=== PATIENT | male | born 1955 | race Caucasian/White ===

== ENCOUNTER 2018-08-31 21:56 | Inpatient (IN) | payer OTHER, SELFPAY ==
[2018-08-31] MEDS ORDERED: ASPIRIN PO ONE (22:06)
[2018-08-31] MEDS ORDERED: ZOFRAN ODT PO ONE (22:47)
[2018-08-31] MEDS ORDERED: ZOFRAN ODT ONE (22:48)
[2018-08-31 23:00] LABS: Basophils # (Auto) 0.1 K/mm3 (0.0-0.1); Eosinophils # (Auto) 0.1 K/mm3 (0.0-0.4); Eosinophils % (Auto) 0.8 % (0.0-4.3); Lymphocytes # (Auto) 2.4 K/mm3 (1.2-5.4); Lymphocytes % (Auto) 25.3 % (13.4-35.0); Mean Corpuscular HGB Conc 36 % (32-34); Mean Corpuscular Volume 80 fl (84-94); Monocytes # (Auto) 0.6 K/mm3 (0.0-0.8); Monocytes % (Auto) 6.1 % (0.0-7.3); Platelet Count 211 K/mm3 (140-440); Red Blood Count 5.54 M/mm3 (3.65-5.03); Red Cell Distribution Width 14.2 % (13.2-15.2)
[2018-08-31 23:02] LABS: Hematocrit 44.3 % (35.5-45.6); Hemoglobin 15.8 gm/dl (11.8-15.2)
[2018-08-31 23:19] LABS: BUN/Creatinine Ratio 12; Blood Urea Nitrogen 13 mg/dL (9-20); Calcium 9.2 mg/dL (8.4-10.2); Hemolysis Index 9
[2018-09-01] MEDS ORDERED: NITROSTAT SL PRN (00:29)
[2018-09-01] MEDS ORDERED: ASPIRIN ONE ×2 (00:35→10:29)
--- NOTE | 2018-09-01 01:02 | XRay Report ---
FINAL REPORT PROCEDURE: XR CHEST ROUTINE 2V TECHNIQUE: PA and lateral chest radiographs were obtained. CPT 02731 HISTORY: chest pain COMPARISON: No prior studies are available for comparison. FINDINGS: Heart: Normal. Mediastinum/Vessels: Normal. Lungs/Pleural space: Normal. Bony thorax: No acute osseous abnormality. Other: IMPRESSION: Normal examination.
[2018-09-01 01:18] LABS: Chol/HDL Ratio 5.78 %; HDL Cholesterol 41 mg/dL (40-59); LDL Cholesterol,Direct 178 mg/dL (50-130)
[2018-09-01] MEDS ORDERED: HEPARIN 10,000 UNITS/10 ML IV ONE (01:19)
--- NOTE | 2018-09-01 01:24 | Emergency Department Report ---
ED Chest Pain HPI - General Chief Complaint: Chest Pain Stated Complaint: CHEST PAIN Time Seen by Provider: 09/01/18 00:28 Source: patient, family Mode of arrival: Ambulatory Limitations: Language Barrier - History of Present Illness Initial Comments: Patient is a 63-year-old male with no known past medical history that he is aware of who is presenting with chest pressure. 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 Patient started having some substernal and left-sided chest pressure earlier today. There was some associated shortness of breath mild headache. Patient's states there is no diaphoresis or nausea or vomiting present. Patient has not had a cough cold or congestion. Severity scale (0 -10): 8 - Related Data Allergies Allergy/AdvReac Type Severity Reaction Status Date / Time No Known Allergies Allergy Verified 08/31/18 22:06 Heart Score - HEART Score History: Moderately suspicious EKG: Non-specific Age: 45-65 Risk factors: 1-2 risk factors Troponin: 1-3x normal limit HEART Score: 5 ED Review of Systems ROS: Stated complaint: CHEST PAIN Other details as noted in HPI Comment: All other systems reviewed and negative ED Past Medical Hx - Past Medical History Previous Medical History?: No - Surgical History Past Surgical History?: No - Social History Smoking Status: Never Smoker ED Physical Exam - General Limitations: Language Barrier General appearance: alert, in no apparent distress - Head Head exam: Present: atraumatic, normocephalic - Eye Eye exam: Present: normal appearance - ENT ENT exam: Present: mucous membranes moist - Neck Neck exam: Present: normal inspection - Respiratory Respiratory exam: Present: normal lung sounds bilaterally. Absent: respiratory distress, wheezes, rales, rhonchi - Cardiovascular Cardiovascular Exam: Present: regular rate, normal rhythm. Absent: systolic murmur, diastolic murmur, rubs, gallop - GI/Abdominal GI/Abdominal exam: Present: soft, normal bowel sounds. Absent: distended, tenderness, guarding, rebound - Rectal Rectal exam: Present: deferred - Extremities Exam Extremities exam: Present: normal inspection - Back Exam Back exam: Present: normal inspection - Neurological Exam Neurological exam: Present: alert, oriented X3 - Psychiatric Psychiatric exam: Present: normal affect, normal mood - Skin Skin exam: Present: warm, dry, intact, normal color. Absent: rash ED Course Vital Signs 08/31/18 22:34 Temperature 97.1 F L Pulse Rate 70 Respiratory 20 Rate Blood Pressure 198/107 O2 Sat by Pulse 96 Oximetry BETI score - Beti Score Age > 65: (0) No Aspirin use within the Past 7 Days: (0) No 3 or more CAD Risk Factors: (1) Yes 2 or more Angina events in past 24 hrs: (1) Yes Known CAD with more than 50% Stenosis: (0) No Elevated Cardiac Markers: (1) Yes ST Deviation Greater than 0.5mm: (0) No BETI Score: 3 ED Medical Decision Making - Lab Data Result diagrams: 08/31/18 22:30 08/31/18 22:30 Lab Results 08/31/18 08/31/18 Range/Units 22:30 22:30 WBC 9.4 (4.5-11.0) K/mm3 RBC 5.54 H (3.65-5.03) M/mm3 Hgb 15.8 H (11.8-15.2) gm/dl Hct 44.3 (35.5-45.6) % MCV 80 L (84-94) fl MCH 29 (28-32) pg MCHC 36 H (32-34) % RDW 14.2 (13.2-15.2) % Plt Count 211 (140-440) K/mm3 Lymph % (Auto) 25.3 (13.4-35.0) % [place] % (Auto) 6.1 (0.0-7.3) % Eos % (Auto) 0.8 (0.0-4.3) % Baso % (Auto) 1.0 (0.0-1.8) % Lymph # 2.4 (1.2-5.4) K/mm3 [place] # 0.6 (0.0-0.8) K/mm3 Eos # 0.1 (0.0-0.4) K/mm3 Baso # 0.1 (0.0-0.1) K/mm3 Seg Neutrophils % 66.8 (40.0-70.0) % Seg Neutrophils # 6.3 (1.8-7.7) K/mm3 Sodium 137 (137-145) mmol/L Potassium 4.2 (3.6-5.0) mmol/L Chloride 99.0 (98-107) mmol/L Carbon Dioxide 24 (22-30) mmol/L Anion Gap 18 mmol/L BUN 13 (9-20) mg/dL Creatinine 1.1 (0.8-1.5) mg/dL Estimated GFR > 60 ml/min BUN/Creatinine Ratio 12 % Glucose 206 H (75-100) mg/dL Calcium 9.2 (8.4-10.2) mg/dL Troponin T 0.172 H* (0.00-0.029) ng/mL Triglycerides 221 H (2-149) mg/dL Cholesterol 237 H (50-199) mg/dL LDL Cholesterol Direct 178 H (50-130) mg/dL HDL Cholesterol 41 (40-59) mg/dL Cholesterol/HDL Ratio 5.78 % - EKG Data -: EKG Interpreted by Me - EKG Data 09/01/18 01:22 EKG shows a sinus rhythm rate of 74 axis normal intervals are normal. No no ST segment elevations or depressions present. 2207 - Radiology Data Radiology results: report reviewed (CXR WNL) - Medical Decision Making Patient is a 63-year-old male with no known past medical history is however his blood pressure was elevated on arrival as well as his glucose. Patient with substernal tightness. Patient is with elevated troponin. Patient will be admitted to the [facility] [place] time. Patient admitted in stable condition. Critical Care Time: Yes (30) Critical care attestation.: If time is entered above; I have spent that time in minutes in the direct care of this critically ill patient, excluding procedure time. ED Disposition Clinical Impression: NSTEMI (non-ST elevated myocardial infarction), Hyperglycemia, Hypertensive urgency, malignant Disposition: OP ADMIT IP TO THIS HOSP Is pt being admited?: Yes Does the pt Need Aspirin: No Condition: Stable Time of Disposition: 01:24
[2018-09-01 01:47] LABS: Hematocrit 44.4 % (35.5-45.6); Hemoglobin 15.3 gm/dl (11.8-15.2)
[2018-09-01 01:58] LABS: INR 0.89 (0.87-1.13); Partial Thromboplastin Time 27.3 Sec. (24.2-36.6)
[2018-09-01] MEDS ORDERED: SODIUM CHLORIDE FLUSH SYRINGE 10 ML IV PRN (02:24)
[2018-09-01] MEDS ORDERED: ZOFRAN IV PRN (02:24)
[2018-09-01] MEDS ORDERED: TYLENOL PO PRN (02:24)
[2018-09-01] MEDS ORDERED: D50W (25GM) Syringe IV PRN (02:29)
[2018-09-01] MEDS: HEPARIN/ 0.45% NACL-25,000 UNIT/500 ML 25,000 UNIT/500 ML BAG IV SCH (02:49)
[2018-09-01] MEDS ORDERED: NACL 0.9% 1000 ML 1,000 ML IV SCH (03:00)
--- NOTE | 2018-09-01 03:30 | History and Physical Report ---
History of Present Illness Date of examination: 09/01/18 Date of admission: 09/01/18 01:24 Chief complaint: Chest pain History of present illness: Patient is a 53 year old male with no known past medical history who presented to the ED on account of 4 days history of left-sided chest pain. He described it as pressure-like in nature, rated 10 over 10, constant in duration and non-radiating. No known aggravating or relieving factors. He has associated diaphoresis, headaches, nausea with vomiting and lightheadedness. He denies shortness of breath, sore throat, runny nose or congestion, palpitation, cough, fever, chills, leg swelling, orthopnea or PND. No abdominal pain, bleeding from any orifice, constipation, diarrhea, dysuria, frequency, syncope or loss of consciousness. Past History Past Medical History: No medical history Past Surgical History: No surgical history Social history: no significant social history (he denies tobacco, alcohol or illicit drug use) Family history: no significant family history Medications and Allergies Allergies Allergy/AdvReac Type Severity Reaction Status Date / Time No Known Allergies Allergy Verified 08/31/18 22:06 Active Meds: Active Medications Acetaminophen (Tylenol) 650 mg PO Q4H PRN PRN Reason: Pain MILD(1-3)/Fever >100.5/INGRAM Aspirin (Aspirin) 325 mg PO DAILY [facility] Atorvastatin Calcium (Lipitor) 80 mg PO QHS [facility] Carvedilol (Coreg) 3.125 mg PO BID [facility] Dextrose (D50w (25gm) Syringe) 50 ml IV PRN PRN PRN Reason: Hypoglycemia Docusate Sodium (Colace) 100 mg PO BID [facility] Heparin Sodium/Sodium Chloride (Heparin/ 0.45% Nacl-25,000 Unit/500 Ml) 25,000 unit in 500 mls @ 20 mls/hr IV TITRATE [facility]; Protocol Last Admin: 09/01/18 02:49 Dose: 1,000 units/hr, 20 mls/hr Documented by: Sodium Chloride (Nacl 0.9% 1000 Ml) 1,000 mls @ 75 mls/hr IV DIRECT [facility] Insulin Glargine (Lantus) 10 units SUB-Q QHS [facility] Lisinopril (Zestril) 40 mg PO QDAY [facility] Nitroglycerin (Nitrostat) 0.4 mg SL .Q5MIN PRN PRN Reason: Chest Pain Last Admin: 09/01/18 00:53 Dose: 0.4 mg Documented by: Ondansetron HCl (Zofran) 4 mg IV Q8H PRN PRN Reason: Nausea And Vomiting Sodium Chloride (Sodium Chloride Flush Syringe 10 Ml) 10 ml IV BID [facility] Sodium Chloride (Sodium Chloride Flush Syringe 10 Ml) 10 ml IV PRN PRN PRN Reason: LINE FLUSH Review of Systems All systems: negative (except as documented in the HPI, all other systems were reviewed and negative) Exam - Constitutional Vitals: Temp Pulse Resp BP Pulse Ox 97.1 F L 52 L 16 148/85 97 08/31/18 22:34 09/01/18 03:15 09/01/18 03:15 09/01/18 03:15 09/01/18 03:15 General appearance: Present: no acute distress, well-nourished - EENT Eyes: Present: PERRL, EOM intact ENT: hearing intact, clear oral mucosa - Neck Neck: Present: supple, normal ROM - Respiratory Respiratory effort: normal Respiratory: bilateral: CTA - Cardiovascular Rhythm: other (pain is reproducible) Heart Sounds: Present: S1 & S2. Absent: rub, click - Extremities Extremities: No edema Peripheral Pulses: within normal limits - Abdominal General gastrointestinal: Present: soft, non-tender, non-distended, normal bowel sounds Male genitourinary: Present: deferred - Integumentary Integumentary: Present: clear, warm, dry - Musculoskeletal Musculoskeletal: gait normal, strength equal bilaterally - Psychiatric Psychiatric: appropriate mood/affect, intact judgment & insight - Neurologic Neurologic: CNII-XII intact, moves all extremities Results - Labs CBC & Chem 7: 09/01/18 01:26 08/31/18 22:30 Labs: Laboratory Last Values WBC 9.4 K/mm3 (4.5-11.0) 08/31/18 22:30 RBC 5.54 M/mm3 (3.65-5.03) H 08/31/18 22:30 Hgb 15.3 gm/dl (11.8-15.2) H 09/01/18 01:26 Hct 44.4 % (35.5-45.6) 09/01/18 01:26 MCV 80 fl (84-94) L 08/31/18 22:30 MCH 29 pg (28-32) 08/31/18 22:30 MCHC 36 % (32-34) H 08/31/18 22:30 RDW 14.2 % (13.2-15.2) 08/31/18 22:30 Plt Count 187 K/mm3 (140-440) 09/01/18 01:26 Lymph % (Auto) 25.3 % (13.4-35.0) 08/31/18 22:30 [place] % (Auto) 6.1 % (0.0-7.3) 08/31/18 22:30 Eos % (Auto) 0.8 % (0.0-4.3) 08/31/18: Baso % (Auto) 1.0 % (0.0-1.8) 08/31/18 22:30 Lymph # 2.4 K/mm3 (1.2-5.4) 08/31/18 22: [place] # 0.6 K/mm3 (0.0-0.8) 08/31/18 22: Eos # 0.1 K/mm3 (0.0-0.4) 08/31/18 22: Baso # 0.1 K/mm3 (0.0-0.1) 08/31/18 22:30 Seg Neutrophils % 66.8 % (40.0-70.0) 08/31/18 22:30 Seg Neutrophils # 6.3 K/mm3 (1.8-7.7) 08/31/18 22: PT 12.6 Sec. (12.2-14.9) 09/01/18 01: INR 0.89 (0.87-1.13) 09/01/18 01: APTT 27.3 Sec. (24.2-36.6) 09/01/18 01: Sodium 137 mmol/L (137-145) 08/31/18 22: Potassium 4.2 mmol/L (3.6-5.0) 08/31/18 22: Chloride 99.0 mmol/L (98-107) 08/31/18 22:30 Carbon Dioxide 24 mmol/L (22-30) 08/31/18 22:30 Anion Gap 18 mmol/L 08/31/18 22:30 BUN 13 mg/dL (9-20) 08/31/18 22:30 Creatinine 1.1 mg/dL (0.8-1.5) 08/31/18 22:30 Estimated GFR > 60 ml/min 08/31/18 22:30 BUN/Creatinine Ratio 12 % 08/31/18 22:30 Glucose 206 mg/dL (75-100) H 08/31/18 22:30 Calcium 9.2 mg/dL (8.4-10.2) 08/31/18 22:30 Troponin T 0.255 ng/mL (0.00-0.029) H* D 09/01/18 01:26 Triglycerides 221 mg/dL (2-149) H 08/31/18 22:30 Cholesterol 237 mg/dL (50-199) H 08/31/18 22:30 LDL Cholesterol Direct 178 mg/dL (50-130) H 08/31/18 22:30 HDL Cholesterol 41 mg/dL (40-59) 08/31/18 22:30 Cholesterol/HDL Ratio 5.78 % 08/31/18 22:30 Assessment and Plan Assessment and plan: NSTEMI -ACS protocol with heparin drip -Cardiology consulted Hypertensive crisis with BP of 198/107 on presentation -On antihypertensive, will monitor Hyperglycemia -We'll check hemoglobin A1c level Dyslipidemia -On statin GI prophylaxis with Protonix Disposition: Patient will be admitted to the IMCU Time spent: 40 minutes
[2018-09-01] MEDS ORDERED: COREG PO SCH (10:00)
[2018-09-01] MEDS ORDERED: ZESTRIL PO SCH (10:00)
--- NOTE | 2018-09-01 10:01 | Consultation ---
Addendum entered and electronically signed by ELIJAH SHARP MD 09/01/18 17:28: Patient's heart rate has persistently remained 55-60, we will hold beta anna therapy until bradycardia resolves. Addendum entered and electronically signed by ELIJAH SHARP MD 09/01/18 17:23: 63-year-old man who presents to the hospital with several days of intermittent chest pain and fatigue. EKG in the emergency room was rhythm with nonspecific ST changes. Laboratory exam showed serial elevation of the troponin levels, suggestive of non-ST elevation myocardial infarction. Recommendations: The patient will be treated with intravenous heparin, topical nitrates, aspirin, beta blockers and statin. We'll proceed with early invasive management, cardiac catheterization is scheduled for tomorrow morning. Original Note: History of Present Illness Consult date: 09/01/18 Consult reason: chest pain, elevated troponin History of present illness: Patient is a 63 year old male who presents to the emergency room with 4 days of chest pain. Patient denies a prior medical history and does not smoke cigarettes. Chest x-ray is negative. ECG shows sinus rhythm with no acute ischemic changes but troponin levels are elevated with a trend upwards. Labs also notable for a glucose of 206. Systolic blood pressure greater than 190 on presentation. A cardiac consultation was requested for further recommendations. Past History Past Medical History: No medical history Past Surgical History: No surgical history Social history: no significant social history (he denies tobacco, alcohol or illicit drug use) Family history: no significant family history Medications and Allergies Allergies Allergy/AdvReac Type Severity Reaction Status Date / Time No Known Allergies Allergy Verified 08/31/18 22:06 Active Meds: Active Medications Acetaminophen (Tylenol) 650 mg PO Q4H PRN PRN Reason: Pain MILD(1-3)/Fever >100.5/INGRAM Aspirin (Aspirin) 325 mg PO DAILY [facility] Atorvastatin Calcium (Lipitor) 80 mg PO QHS [facility] Dextrose (D50w (25gm) Syringe) 50 ml IV PRN PRN PRN Reason: Hypoglycemia Docusate Sodium (Colace) 100 mg PO BID [facility] Heparin Sodium/Sodium Chloride (Heparin/ 0.45% Nacl-25,000 Unit/500 Ml) 25,000 unit in 500 mls @ 20 mls/hr IV TITRATE [facility]; Protocol Last Admin: 09/01/18 02:49 Dose: 1,000 units/hr, 20 mls/hr Documented by: Sodium Chloride (Nacl 0.9% 1000 Ml) 1,000 mls @ 75 mls/hr IV DIRECT [facility] Insulin Glargine (Lantus) 10 units SUB-Q QHS [facility] Lisinopril (Zestril) 40 mg PO QDAY [facility] Nitroglycerin (Nitrostat) 0.4 mg SL .Q5MIN PRN PRN Reason: Chest Pain Last Admin: 09/01/18 00:53 Dose: 0.4 mg Documented by: Ondansetron HCl (Zofran) 4 mg IV Q8H PRN PRN Reason: Nausea And Vomiting Pantoprazole Sodium (Protonix) 40 mg PO QDAY [facility] Sodium Chloride (Sodium Chloride Flush Syringe 10 Ml) 10 ml IV BID [facility] Sodium Chloride (Sodium Chloride Flush Syringe 10 Ml) 10 ml IV PRN PRN PRN Reason: LINE FLUSH Physical Examination Vital Signs Temp Pulse Resp BP Pulse Ox 97.1 F L 70 20 198/107 96 08/31/18 22:34 08/31/18 22:34 08/31/18 22:34 08/31/18 22:34 08/31/18 22:34 General appearance: no acute distress HEENT: Positive: PERRL Neck: Positive: trachea midline Cardiac: Positive: Reg Rate and Rhythm Lungs: Positive: Decreased Breath Sounds Neuro: Positive: Grossly Intact Extremities: Absent: edema Results 09/01/18 01:26 08/31/18 22:30 Coagulation 09/01/18 Range/Units 01:26 PT 12.6 (12.2-14.9) Sec. INR 0.89 (0.87-1.13) APTT 27.3 (24.2-36.6) Sec. Lipids 08/31/18 Range/Units 22:30 Triglycerides 221 H (2-149) mg/dL Cholesterol 237 H (50-199) mg/dL HDL Cholesterol 41 (40-59) mg/dL Cholesterol/HDL Ratio 5.78 % CBC 08/31/18 09/01/18 Range/Units 22:30 01:26 WBC 9.4 (4.5-11.0) K/mm3 RBC 5.54 H (3.65-5.03) M/mm3 Hgb 15.8 H 15.3 H (11.8-15.2) gm/dl Hct 44.3 44.4 (35.5-45.6) % Plt Count 211 187 (140-440) K/mm3 Lymph # 2.4 (1.2-5.4) K/mm3 [place] # 0.6 (0.0-0.8) K/mm3 Eos # 0.1 (0.0-0.4) K/mm3 Baso # 0.1 (0.0-0.1) K/mm3 Comprehensive Metabolic Panel 08/31/18 Range/Units 22:30 Sodium 137 (137-145) mmol/L Potassium 4.2 (3.6-5.0) mmol/L Chloride 99.0 (98-107) mmol/L Carbon Dioxide 24 (22-30) mmol/L BUN 13 (9-20) mg/dL Creatinine 1.1 (0.8-1.5) mg/dL Glucose 206 H (75-100) mg/dL Calcium 9.2 (8.4-10.2) mg/dL Assessment and Plan - Patient Problems (1) NSTEMI (non-ST elevated myocardial infarction) Current Visit: Yes Status: Acute
[2018-09-01] MEDS ORDERED: PROTONIX PO ONE (10:29)
[2018-09-01] MEDS ORDERED: ZESTRIL ONE (10:30)
[2018-09-01] MEDS ORDERED: COLACE ONE (10:30)
[2018-09-01] MEDS: SODIUM CHLORIDE FLUSH SYRINGE 10 ML IV SCH ×2 (10:32→22:00)
[2018-09-01] MEDS: PROTONIX PO SCH (10:34)
[2018-09-01] MEDS: COLACE PO SCH ×2 (10:34→22:00)
[2018-09-01] MEDS: ASPIRIN PO SCH (10:34)
[2018-09-01] MEDS: NITRO-BID 2% TP SCH (13:45)
[2018-09-01] MEDS: LANTUS SUB-Q SCH (21:57)
[2018-09-02] MEDS: HEPARIN/ 0.45% NACL-25,000 UNIT/500 ML 25,000 UNIT/500 ML BAG IV SCH (03:53)
[2018-09-02 04:08] LABS: Hematocrit 43.3 % (35.5-45.6); Hemoglobin 14.6 gm/dl (11.8-15.2); Mean Corpuscular HGB Conc 34 % (32-34); Mean Corpuscular Volume 81 fl (84-94); Platelet Count 166 K/mm3 (140-440); Red Blood Count 5.34 M/mm3 (3.65-5.03); Red Cell Distribution Width 14.3 % (13.2-15.2)
[2018-09-02 04:26] LABS: BUN/Creatinine Ratio 15; Blood Urea Nitrogen 16 mg/dL (9-20); Calcium 8.2 mg/dL (8.4-10.2); Hemolysis Index 9
[2018-09-02] MEDS: NITRO-BID 2% TP SCH ×4 (06:00→18:00)
[2018-09-02] MEDS: ASPIRIN PO SCH (09:29)
[2018-09-02] MEDS: COLACE PO SCH ×2 (10:22→22:12)
[2018-09-02] MEDS: PROTONIX PO SCH (10:23)
[2018-09-02] MEDS ORDERED: NACL 0.9% 500 ML 500 ML IV SCH (11:00)
[2018-09-02] MEDS ORDERED: VERSED ONE ×2 (11:05→13:47)
[2018-09-02] MEDS ORDERED: HEPARIN 10,000 UNITS/10 ML ONE ×2 (11:05→13:48)
[2018-09-02] MEDS ORDERED: NITROGLYCERIN SYRINGE 3 ML ONE (11:05)
[2018-09-02] MEDS ORDERED: HEPARIN/NS 5000 UNIT/500ML(CATH LAB) 1,000 ML IR ONE ×2 (11:05→13:48)
[2018-09-02] MEDS ORDERED: XYLOCAINE 2% INFILTRATI ONE (11:05)
[2018-09-02] MEDS ORDERED: CALAN ONE (11:05)
[2018-09-02] MEDS: SUBLIMAZE ONE ×2 (11:36→13:58)
--- NOTE | 2018-09-02 11:46 | Progress Note ---
Assessment and Plan Assessment and plan: Patient is a 53 year old [place] speaking man without a known history of chronic medical problems who presented to PSYCHIATRIC ED with chest pains. -NSTEMI: ACS protocol with heparin drip, Cardiology taking to Cardiac cath today -Malignant Hypertension related to the above: treat with BBlocker -Dyslipidemia: treat with statin History Interval history: Patient was seen and examined. Follow-up on current diagnosis of chest pains. Overnight uneventful. Patient denies any shortness breath, nausea/vomiting or severe headaches. Imaging, nursing note, chart, labs and old chart reviewed. Discussed with patient. Family at bedside [employer] Physical - Physical exam Narrative exam: Gen: WDWN, NAD, Awake, Alert, Orientated HEENT: NCAT, EOMI, PERRL, OP Clear Neck: supple, no adenopathy, no thyromegaly, no JVD CVS/Heart: RRR, normal S1S2, pulses present bilaterally Chest/Lungs: CTA B, Symmetrical chest expansion, good air entry bilaterally GI/Abdomen: soft, NTND, good bowel sounds, no guarding or rebound /Bladder: no suprapubic tenderness, no CVA or paraspinal tenderness Extermity/Skin: no c/c/e, no obvious rash MSK: FROM x 4 Neuro: CN 2-12 grossly intact, no new focal deficits Psych: calm - Constitutional Vitals: Temp Pulse Resp BP Pulse Ox 100.6 F H 76 16 102/53 96 09/02/18 04:00 09/02/18 09:31 09/02/18 09:31 09/02/18 09:31 09/02/18 09:31 General appearance: Present: no acute distress Results - Labs CBC & Chem 7: 09/02/18 03:48 09/02/18 03:48 Labs: Laboratory Last Values WBC 6.4 K/mm3 (4.5-11.0) 09/02/18 03:48 RBC 5.34 M/mm3 (3.65-5.03) H 09/02/18 03:48 Hgb 14.6 gm/dl (11.8-15.2) 09/02/18 03:48 Hct 43.3 % (35.5-45.6) 09/02/18 03:48 MCV 81 fl (84-94) L 09/02/18 03:48 MCH 27 pg (28-32) L 09/02/18 03:48 MCHC 34 % (32-34) 09/02/18 03:48 RDW 14.3 % (13.2-15.2) 09/02/18 03:48 Plt Count 166 K/mm3 (140-440) 09/02/18 03:48 Lymph % (Auto) 25.3 % (13.4-35.0) 08/31/18 22:30 [place] % (Auto) 6.1 % (0.0-7.3) 08/31/18 22:30 Eos % (Auto) 0.8 % (0.0-4.3) 08/31/18 22:30 Baso % (Auto) 1.0 % (0.0-1.8) 08/31/18 22:30 Lymph # 2.4 K/mm3 (1.2-5.4) 08/31/18 22:30 [place] # 0.6 K/mm3 (0.0-0.8) 08/31/18 22:30 Eos # 0.1 K/mm3 (0.0-0.4) 08/31/18 22:30 Baso # 0.1 K/mm3 (0.0-0.1) 08/31/18 22:30 Seg Neutrophils % 66.8 % (40.0-70.0) 08/31/18 22:30 Seg Neutrophils # 6.3 K/mm3 (1.8-7.7) 08/31/18 22:30 PT 12.6 Sec. (12.2-14.9) 09/01/18 01:26 INR 0.89 (0.87-1.13) 09/01/18 01:26 APTT 27.3 Sec. (24.2-36.6) 09/01/18 01:26 Heparin Anti-Xa Level 0.29 U.I./ml (0.3-0.7) L 09/02/18 00:37 Sodium 137 mmol/L (137-145) 09/02/18 03:48 Potassium 4.0 mmol/L (3.6-5.0) 09/02/18 03:48 Chloride 100.6 mmol/L (98-107) 09/02/18 03:48 Carbon Dioxide 23 mmol/L (22-30) 09/02/18 03:48 Anion Gap 17 mmol/L 09/02/18 03:48 BUN 16 mg/dL (9-20) 09/02/18 03:48 Creatinine 1.1 mg/dL (0.8-1.5) 09/02/18 03:48 Estimated GFR > 60 ml/min 09/02/18 03:48 BUN/Creatinine Ratio 15 % 09/02/18 03:48 Glucose 197 mg/dL (75-100) H 09/02/18 03:48 POC Glucose 154 (70-105) H 09/02/18 09:38 Hemoglobin A1c 8.1 % (4-6) H 09/01/18 03:52 Calcium 8.2 mg/dL (8.4-10.2) L 09/02/18 03:48 Troponin T 0.334 ng/mL (0.00-0.029) H* D 09/01/18 03:52 Triglycerides 221 mg/dL (2-149) H 08/31/18 22:30 Cholesterol 237 mg/dL (50-199) H 08/31/18 22:30 LDL Cholesterol Direct 178 mg/dL (50-130) H 08/31/18 22:30 HDL Cholesterol 41 mg/dL (40-59) 08/31/18 22:30 Cholesterol/HDL Ratio 5.78 % 08/31/18 22:30 Nutrition/Malnutrition Assess - Dietary Evaluation Nutrition/Malnutrition Findings: Nutrition Notes Start: 09/01/18 15:36 Freq: Status: Active Protocol: Document 09/01/18 15:36 RM (Rec: 09/01/18 15:38 RM [id number]) Nutrition Notes Need for Assessment generated from: MD Order Initial or Follow up Brief Note Subjective/Other Information Consulted for DM diet education. Pt in ED. Nutrition Intervention Follow-Up By: 09/02/18 Additional Comments Follow for DM diet education
[2018-09-02] MEDS ORDERED: NACL 0.9% 1000 ML 1,000 ML ONE ×2 (11:54→12:58)
--- NOTE | 2018-09-02 12:29 | Progress Note ---
Assessment and Plan NSTEMI Cath - proximal LAD thrombus; 100% mid LAD occlusion, LVEF 55%, mild anterior wall hypokinesis Hyperlipidemia Recommendations: PCI to mid LAD DAPT for at least 1 year Echocardiogram High intensity statins Subjective Date of service: 09/02/18 Principal diagnosis: NSTEMI Interval history: Cardiac cath performed - no complication Objective Vital Signs Temp Pulse Pulse Pulse Resp BP Pulse Ox 09/02/18 12:08 97.6 F 57 L 13 94/47 95 09/02/18 09:31 76 16 102/53 96 09/02/18 09:00 57 L 21 101/49 96 09/02/18 08:30 61 21 101/46 96 09/02/18 08:00 60 22 93/50 96 09/02/18 07:30 59 L 20 95/46 94 09/02/18 07:00 63 19 95/50 94 09/02/18 06:31 64 22 92/54 94 09/02/18 06:01 63 23 98/49 95 09/02/18 05:30 64 18 92/54 94 09/02/18 05:00 58 L 16 94 09/02/18 04:30 63 18 98/49 94 09/02/18 04:00 100.6 F H 63 21 89/50 94 09/02/18 03:30 61 23 103/47 93 09/02/18 03:00 68 18 89/48 96 09/02/18 02:30 70 23 92/55 94 09/02/18 02:00 66 21 101/59 96 09/02/18 01:30 63 23 94/49 94 09/02/18 01:00 60 21 95/50 94 09/02/18 00:30 59 L 20 102/52 95 09/02/18 00:00 99.1 F 62 23 95/49 95 09/01/18 23:30 67 20 100/58 96 09/01/18 23:00 68 24 93/51 95 09/01/18 22:31 68 22 95/50 96 09/01/18 22:00 70 19 81/46 09/01/18 21:30 61 22 82/43 95 09/01/18 21:00 64 21 97/52 96 09/01/18 20:31 65 21 89/47 09/01/18 20:00 100.1 F H 65 66 23 89/47 95 09/01/18 19:46 74 22 95 09/01/18 19:00 72 17 85/55 94 09/01/18 16:00 58 L 09/01/18 13:29 57 L 09/01/18 12:31 53 L 16 96 - Physical Examination HEENT: Positive: PERRL Neck: Positive: trachea midline Cardiac: Positive: Reg Rate and Rhythm Lungs: Positive: Normal Exam Neuro: Positive: Grossly Intact Extremities: Absent: edema - Labs and Meds CBC 09/02/18 Range/Units 03:48 WBC 6.4 (4.5-11.0) K/mm3 RBC 5.34 H (3.65-5.03) M/mm3 Hgb 14.6 (11.8-15.2) gm/dl Hct 43.3 (35.5-45.6) % Plt Count 166 (140-440) K/mm3 Comprehensive Metabolic Panel 09/02/18 Range/Units 03:48 Sodium 137 (137-145) mmol/L Potassium 4.0 (3.6-5.0) mmol/L Chloride 100.6 (98-107) mmol/L Carbon Dioxide 23 (22-30) mmol/L BUN 16 (9-20) mg/dL Creatinine 1.1 (0.8-1.5) mg/dL Glucose 197 H (75-100) mg/dL Calcium 8.2 L (8.4-10.2) mg/dL
[2018-09-02] MEDS ORDERED: PLAVIX ONE (12:54)
[2018-09-02] MEDS ORDERED: PLAVIX PO ONE (13:00)
--- NOTE | 2018-09-02 13:03 | Cardiac Catherization Report ---
LEFT HEART CATHETERIZATION ORDERING PHYSICIAN: Dilcia Ramos MD PROCEDURES PERFORMED: 1. Selective left and right coronary angiography. 2. Left ventriculography. DESCRIPTION OF PROCEDURE: After obtaining the consent, the patient was draped using sterile technique. A 2% lidocaine was injected into the right wrist. A 6-[place]cuadorean vascular sheath was inserted into the right radial artery, 6-[place]cuad[place] JL3.5 catheter was used to selectively engage left coronary artery, 6-[place]cu[place] JR4 catheter was used to selectively engage the right coronary artery. A 6-[place] JR4 catheter was used to hand inject left ventriculogram. No complications occurred during the procedure. Hemostasis was achieved at the end of procedure with manual pressure. SPECIMEN REMOVED: None. SEDATION ADMINISTERED: 0.5 mg of IV Versed and 25 mcg of IV fentanyl. Physician-patient [id number] sedation start time is 11:36 a.m. Physician-patient [id number] sedation stop time 11:51 a.m. Total sedation time is 15 minutes. FINDINGS: HEMODYNAMICS: Aortic pressure 88/54. LV systolic pressure 89 mmHg, LVEDP 17 mmHg. CARDIAC STRUCTURES: Normal left ventricular size and systolic function with an ejection fraction estimated at 55%, mild anterior wall hypokinesis is noted. CORONARY ANATOMY: 1. This is a right dominant circulation. 2. The left main has mild diffuse luminal irregularities. 3. The left anterior descending artery has evidence of a proximal thrombus followed by a 100% occlusion of the mid LAD distal to the takeoff of the second diagonal artery. 4. The left circumflex artery has 20-30% diffuse luminal disease. 5. The right coronary artery has a 30-40% diffuse luminal disease. IMPRESSION: 1. Proximal LAD thrombus followed by a 100% occlusion of the mid LAD, otherwise mild nonobstructive coronary artery disease involving the right coronary artery as well as circumflex artery. 2. Normal left ventricular size and systolic function with ejection fraction estimated at 55% and mild hypokinesis of the anterior wall. 3. LVEDP measured at 17 mmHg. RECOMMENDATIONS: Proceed with PCI to the mid LAD. JOB# [id number] MICHELLE/QASIM
[2018-09-02] MEDS ORDERED: SUBLIMAZE ONE (13:47)
[2018-09-02] MEDS ORDERED: NITROGLYCERIN SYRINGE 6 ML ONE (13:48)
[2018-09-02] MEDS: XYLOCAINE 2% INFILTRATI ONE ×2 (13:59→14:00)
[2018-09-02] MEDS ORDERED: AGGRASTAT DRIP (12.5 MG/250 ML) 12,500 MCG/250 ML BAG IV ONE (14:07)
--- NOTE | 2018-09-02 14:36 | Event Note ---
Date: 09/02/18 Successful angioplasty and stenting under percent thrombotic occlusion of the mid LAD. Excellent angiographic result and reestablishment of BETI-3 flow after deployment of a 3.0 mm drug-eluting stent. Recommendations: Aggrastat intravenously for 18 hours. Plavix and aspirin in addition to guideline directed anti-ischemic medical therapy.
[2018-09-02] MEDS ORDERED: AGGRASTAT DRIP (12.5 MG/250 ML) 12,500 MCG/250 ML BAG IV SCH (15:00)
[2018-09-02] MEDS ORDERED: NACL 0.9% 1000 ML 1,000 ML IV SCH (16:00)
--- NOTE | 2018-09-02 17:15 | Cardiac Catherization Report ---
CORONARY ANGIOPLASTY REASON FOR PROCEDURE: The patient is a 63-year-old man, who presented with non-ST elevation myocardial infarction, cardiac catheterization reveals thrombotic occlusion of the LAD in its midsegment. He was recommended for coronary intervention. PROCEDURE: Coronary angioplasty and stenting of the mid left anterior descending artery. DESCRIPTION OF PROCEDURE: The patient was prepped and draped in a sterile fashion after informed consent. The right femoral artery was entered using Seldinger technique followed by placement of a 6-Serbian sheath. We selected a number #3.5 XB guiding catheter and advanced to the left coronary ostium. Preintervention angiograms were taken. A 0.014-inch Gopherman 50 guide wire was then introduced into the LAD and across the lesional segment, following wire placement in the distal LAD, we performed balloon angioplasty using a 3.0 mm balloon catheter. BETI 3 flow was reestablished, revealing a long segment of diffuse disease of the mid LAD. We then deployed a 3.0 x 28 mm Resolute drug-eluting stent covering the entire lesional segment, and inflated the stent to optimal pressures. Post-dilatation angioplasty was done using #3.0 mm NC balloon catheter. Following angioplasty and stenting, there was an excellent angiographic result, 0 residual stenosis and BETI 3 flow. The patient tolerated the procedure well and there were no complications. The sheaths were removed, hemostasis achieved using an Angio-Seal device. The patient was returned to the post-procedure unit in stable condition. There were no complications. CONCLUSION: Successful angioplasty and stenting of the mid LAD thrombotic occlusion, 100% stenosis was reduced to a 0% residual with reestablishment of BETI 3 flow. Excellent angiographic result. JOB# [id number] EMILEE/NTS
[2018-09-02] MEDS: LANTUS SUB-Q SCH (22:00)
[2018-09-02] MEDS: LOPRESSOR PO SCH (22:11)
[2018-09-02] MEDS: SODIUM CHLORIDE FLUSH SYRINGE 10 ML IV SCH (22:12)
[2018-09-03 03:29] LABS: Basophils % (Auto) 0.9 % (0.0-1.8); Eosinophils # (Auto) 0.1 K/mm3 (0.0-0.4); Hematocrit 39.6 % (35.5-45.6); Hemoglobin 13.3 gm/dl (11.8-15.2); Lymphocytes # (Auto) 1.6 K/mm3 (1.2-5.4); Lymphocytes % (Auto) 28.3 % (13.4-35.0); Mean Corpuscular HGB Conc 34 % (32-34); Mean Corpuscular Volume 81 fl (84-94); Monocytes # (Auto) 0.4 K/mm3 (0.0-0.8); Monocytes % (Auto) 7.6 % (0.0-7.3); Platelet Count 150 K/mm3 (140-440); Red Cell Distribution Width 14.1 % (13.2-15.2)
[2018-09-03 04:06] LABS: Creatine Kinase MB 13.7 ng/mL (0.0-4.0)
[2018-09-03 04:10] LABS: BUN/Creatinine Ratio 12; Blood Urea Nitrogen 11 mg/dL (9-20); Calcium 7.9 mg/dL (8.4-10.2); Hemolysis Index 9
--- NOTE | 2018-09-03 05:20 | XRay Report ---
FINAL REPORT EXAM: XR CHEST 1V AP HISTORY: post pci TECHNIQUE: AP portable view(s) of the chest obtained. PRIORS: 08/31/2018 FINDINGS: No mediastinal shift. Cardiac silhouette is not enlarged. No pneumothorax, effusion, or focal pulmona ry opacity identified. No acute skeletal findings. IMPRESSION: No acute pulmonary finding identified.
[2018-09-03] MEDS: NITRO-BID 2% TP SCH (05:30)
[2018-09-03] MEDS: COLACE PO SCH ×2 (10:22→22:05)
[2018-09-03] MEDS: PROTONIX PO SCH (10:23)
[2018-09-03] MEDS: SODIUM CHLORIDE FLUSH SYRINGE 10 ML IV SCH ×3 (10:24→22:07)
[2018-09-03] MEDS: ASPIRIN PO SCH (10:25)
[2018-09-03] MEDS: LOPRESSOR PO SCH ×2 (10:25→22:05)
[2018-09-03] MEDS: PLAVIX PO SCH (10:26)
[2018-09-03] MEDS: ZESTRIL PO SCH (10:26)
[2018-09-03] MEDS ORDERED: D50W (25GM) Syringe IV PRN (10:47)
[2018-09-03] MEDS: HumaLOG SUB-Q SCH ×3 (11:30→22:06)
--- NOTE | 2018-09-03 13:45 | Progress Note ---
Assessment and Plan Assessment and plan: Patient is a 53 year old Portuguese speaking man without a known history of chronic medical problems who presented to [facility] ED with chest pains. -NSTEMI: Cardiac cath done on 09/02/18 with Successful angioplasty and stenting 100% thrombotic occlusion of the mid LAD, Excellent angiographic result and reestablishment of BETI-3 flow after deployment of a 3.0 mm drug-eluting stent. -Acute diastolic heart failure suspect, poa: ECHO pending -Malignant Hypertension related to the above: treated -Bradycarda, Cardiology adjusting antihypertensive -Hypotension: stop NTG paste -Dyslipidemia: treat with statin -DVT prophylaxis: scd, on asa/plavix and Aggrestat to be stopped Disposition: continue inpatient care, transfer to telemetry once Aggrestat stopped, anticipate discharge tomorrow History Interval history: Patient was seen and examined. Follow-up on current diagnosis of chest pains. O vernight uneventful. Patient denies any shortness breath, nausea/vomiting or severe headaches. Imaging, nursing note, chart, labs and old chart reviewed. Discussed with patient. Family at bedside [employer] [facility] Physical - Physical exam Narrative exam: Gen: WDWN, NAD, Awake, Alert, Orientated HEENT: NCAT, EOMI, PERRL, OP Clear Neck: supple, no adenopathy, no thyromegaly, no JVD CVS/Heart: RRR, normal S1S2, pulses present bilaterally Chest/Lungs: CTA B, Symmetrical chest expansion, good air entry bilaterally GI/Abdomen: soft, NTND, good bowel sounds, no guarding or rebound /Bladder: no suprapubic tenderness, no CVA or paraspinal tenderness Extermity/Skin: no c/c/e, no obvious rash MSK: FROM x 4 Neuro: CN 2-12 grossly intact, no new focal deficits Psych: calm - Constitutional Vitals: Temp Pulse Resp BP Pulse Ox 98.4 F 70 14 113/64 96 09/03/18 04:00 09/03/18 10:26 09/03/18 06:00 09/03/18 10:26 09/03/18 06:00 General appearance: Present: no acute distress Results - Labs CBC & Chem 7: 09/03/18 03:00 09/03/18 03:00 Labs: Laboratory Last Values WBC 5.7 K/mm3 (4.5-11.0) 09/03/18 03:00 RBC 4.90 M/mm3 (3.65-5.03) 09/03/18 03:00 Hgb 13.3 gm/dl (11.8-15.2) 09/03/18 03:00 Hct 39.6 % (35.5-45.6) 09/03/18 03:00 MCV 81 fl (84-94) L 09/03/18 03:00 MCH 27 pg (28-32) L 09/03/18 03:00 MCHC 34 % (32-34) 09/03/18 03:00 RDW 14.1 % (13.2-15.2) 09/03/18 03:00 Plt Count 150 K/mm3 (140-440) 09/03/18 03:00 Lymph % (Auto) 28.3 % (13.4-35.0) 09/03/18 03:00 [place] % (Auto) 7.6 % (0.0-7.3) H 09/03/18 03:00 Eos % (Auto) 1.0 % (0.0-4.3) 09/03/18 03:00 Baso % (Auto) 0.9 % (0.0-1.8) 09/03/18 03:00 Lymph # 1.6 K/mm3 (1.2-5.4) 09/03/18 03:00 [place] # 0.4 K/mm3 (0.0-0.8) 09/03/18 03:00 Eos # 0.1 K/mm3 (0.0-0.4) 09/03/18 03:00 Baso # 0.0 K/mm3 (0.0-0.1) 09/03/18 03:00 Seg Neutrophils % 62.2 % (40.0-70.0) 09/03/18 03:00 Seg Neutrophils # 3.6 K/mm3 (1.8-7.7) 09/03/18 03:00 PT 12.6 Sec. (12.2-14.9) 09/01/18 01:26 INR 0.89 (0.87-1.13) 09/01/18 01:26 APTT 27.3 Sec. (24.2-36.6) 09/01/18 01:26 Activated Clotting Time 279 (74-137) H 09/02/18 14:28 Heparin Anti-Xa Level < 0.10 U.I./ml (0.3-0.7) L 09/03/18 00:23 Sodium 140 mmol/L (137-145) 09/03/18 03:00 Potassium 4.4 mmol/L (3.6-5.0) 09/03/18 03:00 Chloride 106.8 mmol/L (98-107) 09/03/18 03:00 Carbon Dioxide 22 mmol/L (22-30) 09/03/18 03:00 Anion Gap 16 mmol/L 09/03/18 03:00 BUN 11 mg/dL (9-20) 09/03/18 03:00 Creatinine 0.9 mg/dL (0.8-1.5) 09/03/18 03:00 Estimated GFR > 60 ml/min 09/03/18 03:00 BUN/Creatinine Ratio 12 % 09/03/18 03:00 Glucose 115 mg/dL (75-100) H 09/03/18 03:00 POC Glucose 110 (70-105) H 09/03/18 10:22 Hemoglobin A1c 8.1 % (4-6) H 09/01/18 03:52 Calcium 7.9 mg/dL (8.4-10.2) L 09/03/18 03:00 Total Creatine Kinase 347 units/L (55-170) H 09/03/18 03:00 CK-MB (CK-2) 13.7 ng/mL (0.0-4.0) H 09/03/18 03:00 CK-MB (CK-2) Rel Index 3.9 (0-4) 09/03/18 03:00 Troponin T 1.990 ng/mL (0.00-0.029) H* D 09/03/18 03:00 Triglycerides 221 mg/dL (2-149) H 08/31/18 22:30 Cholesterol 237 mg/dL (50-199) H 08/31/18 22:30 LDL Cholesterol Direct 178 mg/dL (50-130) H 08/31/18 22:30 HDL Cholesterol 41 mg/dL (40-59) 08/31/18 22:30 Cholesterol/HDL Ratio 5.78 % 08/31/18 22:30 Nutrition/Malnutrition Assess - Dietary Evaluation Nutrition/Malnutrition Findings: Nutrition Notes Start: 09/01/18 15:36 Freq: Status: Active Protocol: Document 09/02/18 13:05 (Rec: 09/02/18 13:06 [id number]) Co-Sign 09/02/18 13:05 LP Nutrition Notes Initial or Follow up Brief Note Subjective/Other Information Per RN, Patient having heart catheter inserted today and wasn't in room (procedure takes 3-4 hours). Nutrition Intervention Follow-Up By: 09/03/18 Additional Comments F/U: DM education
--- NOTE | 2018-09-03 14:19 | Progress Note ---
Assessment and Plan - Patient Problems (1) NSTEMI (non-ST elevated myocardial infarction) Current Visit: Yes Status: Acute Plan to address problem: Presentation with non-ST elevation myocardial infarction, followed by coronary intervention with placement of a 3.0 mm drug-eluting stent in the mid LAD. The patient is stable for transfer to telemetry, encourage ambulation, anticipated discharge tomorrow. Subjective Date of service: 09/03/18 Principal diagnosis: NSTEMI Interval history: Patient looks and feels better, comfortable in no acute distress, following the coronary intervention of the mid LAD occlusion. His right groin cath site is well healed, no bleeding and no hematoma. Objective Vital Signs Temp Pulse Pulse Resp BP Pulse Ox 09/03/18 10:26 70 113/64 09/03/18 10:25 67 113/64 09/03/18 06:00 55 L 14 99/55 96 09/03/18 05:30 56 L 14 89/54 96 09/03/18 05:00 54 L 15 95/53 97 09/03/18 04:30 56 L 20 90/52 97 09/03/18 04:00 98.4 F 56 L 56 L 16 91/51 97 09/03/18 03:30 58 L 14 97/54 96 09/03/18 03:00 60 20 94/58 97 09/03/18 02:30 57 L 16 83/50 97 09/03/18 02:00 59 L 17 92/51 96 09/03/18 01:30 59 L 18 98/54 97 09/03/18 01:00 60 18 102/51 97 09/03/18 00:30 59 L 19 93/52 96 09/03/18 00:17 60 21 97/51 95 09/03/18 00:11 98 F 15 90/53 96 09/03/18 00:00 69 65 19 90/53 96 09/02/18 23:30 64 21 94/57 09/02/18 23:00 64 21 96/58 95 09/02/18 22:30 61 22 106/60 97 09/02/18 22:11 65 97/60 09/02/18 22:00 65 21 97/60 97 09/02/18 21:30 64 17 98/60 97 09/02/18 21:01 77 21 151/84 97 09/02/18 20:30 70 24 113/65 96 09/02/18 20:00 97.8 F 75 75 21 126/68 97 09/02/18 19:30 74 23 119/64 96 09/02/18 19:00 75 17 101/62 96 09/02/18 18:30 66 22 103/56 96 09/02/18 18:00 67 20 103/56 96 09/02/18 17:30 65 20 126/67 97 09/02/18 17:00 70 9 L 127/72 98 09/02/18 16:30 67 17 127/69 97 09/02/18 16:00 58 L 61 18 106/59 97 09/02/18 15:30 63 20 114/68 96 09/02/18 15:09 102/53 98 - Physical Examination General: Appears Well, No Apparent Distress HEENT: Positive: PERRL Neck: Positive: trachea midline Cardiac: Positive: Reg Rate and Rhythm Lungs: Positive: clear to auscultation Neuro: Positive: Grossly Intact Abdomen: Positive: Soft Skin: Positive: Clear Extremities: Absent: edema - Labs and Meds Cardiac Enzymes 09/03/18 Range/Units 03:00 CK-MB (CK-2) 13.7 H (0.0-4.0) ng/mL CBC 09/03/18 Range/Units 03:00 WBC 5.7 (4.5-11.0) K/mm3 RBC 4.90 (3.65-5.03) M/mm3 Hgb 13.3 (11.8-15.2) gm/dl Hct 39.6 (35.5-45.6) % Plt Count 150 (140-440) K/mm3 Lymph # 1.6 (1.2-5.4) K/mm3 [place] # 0.4 (0.0-0.8) K/mm3 Eos # 0.1 (0.0-0.4) K/mm3 Baso # 0.0 (0.0-0.1) K/mm3 Comprehensive Metabolic Panel 09/03/18 Range/Units 03:00 Sodium 140 (137-145) mmol/L Potassium 4.4 (3.6-5.0) mmol/L Chloride 106.8 (98-107) mmol/L Carbon Dioxide 22 (22-30) mmol/L BUN 11 (9-20) mg/dL Creatinine 0.9 (0.8-1.5) mg/dL Glucose 115 H (75-100) mg/dL Calcium 7.9 L (8.4-10.2) mg/dL
[2018-09-03] MEDS: LANTUS SUB-Q SCH (23:13)
[2018-09-04] MEDS: NITRO-BID 2% TP SCH (01:18)
[2018-09-04 06:34] LABS: Hematocrit 38.2 % (35.5-45.6); Hemoglobin 12.9 gm/dl (11.8-15.2); Mean Corpuscular HGB Conc 34 % (32-34); Mean Corpuscular Volume 81 fl (84-94); Platelet Count 150 K/mm3 (140-440); Red Blood Count 4.73 M/mm3 (3.65-5.03); Red Cell Distribution Width 14.1 % (13.2-15.2)
[2018-09-04 06:58] LABS: BUN/Creatinine Ratio 11; Blood Urea Nitrogen 10 mg/dL (9-20); Calcium 8.1 mg/dL (8.4-10.2); Hemolysis Index 5
[2018-09-04] MEDS: HumaLOG SUB-Q SCH (07:32)
[2018-09-04] MEDS: ASPIRIN PO SCH (09:34)
[2018-09-04] MEDS: LOPRESSOR PO SCH (09:35)
[2018-09-04] MEDS: PLAVIX PO SCH (09:36)
[2018-09-04] MEDS: ZESTRIL PO SCH (09:37)
[2018-09-04] MEDS: PROTONIX PO SCH (09:37)
--- NOTE | 2018-09-04 10:20 | Progress Note ---
Assessment and Plan NSTEMI s/p 3.0 mm drug-eluting stent in the mid LAD. EF 40-45% by echocardiogram. Hyperlipidemia Continue medical therapy for coronary artery disease including DAPT with plavix and aspirin. Stable cardiac katz for discharge. Patient will f/u at [facility] September 11 at 3p. Subjective Date of service: 09/04/18 Principal diagnosis: NSTEMI Interval history: Patient has no complaints. He denies chest pain. Objective Vital Signs Temp Pulse Pulse Resp BP BP Pulse Ox 09/04/18 08:54 98.0 F 20 137/70 09/04/18 03:45 98.0 F 69 18 120/66 95 09/03/18 23:33 98.3 F 70 18 124/70 96 09/03/18 22:00 75 09/03/18 20:57 98.2 F 73 18 130/75 98 09/03/18 20:11 73 18 170/50 97 09/03/18 20:01 69 17 170/50 97 09/03/18 20:00 18 09/03/18 19:55 77 13 118/67 96 09/03/18 18:01 97.9 F 65 16 132/62 100 09/03/18 17:55 97.9 F 16 132/62 09/03/18 17:21 65 16 128/66 96 09/03/18 17:11 67 18 128/66 96 09/03/18 17:00 68 17 128/66 95 09/03/18 16:51 70 12 126/65 97 09/03/18 16:41 85 16 126/65 96 09/03/18 16:30 63 19 126/65 98 09/03/18 16:21 64 11 L 116/59 98 09/03/18 16:11 59 L 21 116/59 98 09/03/18 16:00 98.3 F 55 L 72 14 116/59 98 09/03/18 15:51 62 17 112/63 98 09/03/18 15:41 56 L 18 118/67 98 09/03/18 15:30 62 17 118/67 97 09/03/18 15:21 61 21 111/63 98 09/03/18 15:11 59 L 18 109/55 98 09/03/18 15:00 52 L 21 109/55 98 09/03/18 14:51 57 L 17 98/57 98 09/03/18 14:41 56 L 20 104/58 98 09/03/18 14:30 56 L 19 104/58 98 09/03/18 14:01 66 14 105/69 97 09/03/18 13:30 60 19 116/62 97 09/03/18 13:00 61 20 111/59 97 09/03/18 12:30 60 13 112/61 98 09/03/18 12:00 98.8 F 61 70 17 109/64 97 09/03/18 11:30 64 24 107/61 96 09/03/18 11:00 61 21 116/65 96 09/03/18 10:30 67 23 115/65 97 09/03/18 10:26 70 113/64 09/03/18 10:25 67 113/64 - Physical Examination General: No Apparent Distress HEENT: Positive: PERRL Neck: Positive: trachea midline Cardiac: Positive: Reg Rate and Rhythm Lungs: Positive: Decreased Breath Sounds Neuro: Positive: Grossly Intact Incision: Cardiac Cath Site (right groin) Extremities: Absent: edema - Labs and Meds CBC 09/04/18 Range/Units 06:24 WBC 6.3 (4.5-11.0) K/mm3 RBC 4.73 (3.65-5.03) M/mm3 Hgb 12.9 (11.8-15.2) gm/dl Hct 38.2 (35.5-45.6) % Plt Count 150 (140-440) K/mm3 Comprehensive Metabolic Panel 09/04/18 Range/Units 06:24 Sodium 140 (137-145) mmol/L Potassium 4.0 (3.6-5.0) mmol/L Chloride 106.4 (98-107) mmol/L Carbon Dioxide 22 (22-30) mmol/L BUN 10 (9-20) mg/dL Creatinine 0.9 (0.8-1.5) mg/dL Glucose 157 H (75-100) mg/dL Calcium 8.1 L (8.4-10.2) mg/dL
[2018-09-04] MEDS: COLACE PO SCH (10:34)
--- NOTE | 2018-09-04 11:00 | Discharge Summary ---
Providers - Providers Date of Admission: 09/01/18 01:24 Date of discharge: 09/04/18 Attending physician: LARRY KATZ 09/01/18 02:27 Consult to Physician [CONS] Routine Comment: Consulting Provider: MARIO BURRIS Physician Instructions: Reason For Exam: NSTEMI 09/01/18 02:29 Consult to Dietitian/Nutrition [CONS] Routine Physician Instructions: Reason For Exam: Reason for Consult: Diet education 09/02/18 Consult to Cardiac Rehabilitation [CONS] Routine Reason For Exam: post pci [facility] Condition: Stable Hospital course: Patient is a 53 year old Greenlandic speaking man without a known history of chronic medical problems who presented to [facility] ED with chest pains. -NSTEMI: Cardiac cath done on 09/02/18 with Successful angioplasty and stenting 100% thrombotic occlusion of the mid LAD, Excellent angiographic result and reestablishment of BETI-3 flow after deployment of a 3.0 mm drug-eluting stent. -Acute combined heart failure poa: ECHO pending -Malignant Hypertension related to the above: treated -Bradycarda, Cardiology adjusting antihypertensive -Hypotension: stop NTG paste -Dyslipidemia: treat with statin -DVT prophylaxis: scd, on asa/plavix and Aggrestat to be stopped Continue medical therapy for coronary artery disease including DAPT with plavix and aspirin. Stable cardiac katz for discharge. Patient will f/u at [facility] September 11 at 3p. Disposition: - TO HOME OR SELFCARE Time spent for discharge: 35 minutes Core Measure Documentation - Palliative Care Palliative Care/ Comfort Measures: Not Applicable - Core Measures Any of the following diagnoses?: acute MO - VTE Discharge Requirements Deep Vein Thrombosis/Pulmonary Embolism Present on Admission: No Has pt received <5 days of overlap therapy or INR<2.0: No Anticoagulant overlap therapy prescribed at discharge: No Contraindication No Overlap Therapy order at DC: Not Indicated - Acute MO Discharge Requirements Aspirin at discharge: Yes ROMEO/ARB for LVSD if EF <40%: Yes Beta anna at discharge: Yes Statin for LDL = or >100 mg/dl on DC: Yes Exam - Physical Exam Narrative exam: Gen: WDWN, NAD, Awake, Alert, Orientated HEENT: NCAT, EOMI, PERRL, OP Clear Neck: supple, no adenopathy, no thyromegaly, no JVD CVS/Heart: RRR, normal S1S2, pulses present bilaterally Chest/Lungs: CTA B, Symmetrical chest expansion, good air entry bilaterally GI/Abdomen: soft, NTND, good bowel sounds, no guarding or rebound /Bladder: no suprapubic tenderness, no CVA or paraspinal tenderness Extermity/Skin: no c/c/e, no obvious rash MSK: FROM x 4 Neuro: CN 2-12 grossly intact, no new focal deficits Psych: calm - Constitutional Vitals: Temp Pulse Resp BP Pulse Ox 98.0 F 69 20 137/70 95 09/04/18 08:54 09/04/18 03:45 09/04/18 08:54 09/04/18 08:54 09/04/18 03:45 Plan Activity: other (no strenous activity until cleared by Cardiology) Diet: low salt Special Instructions: record daily BP diary Follow up with: KACY STAUFFER MD [Staff Physician] - 7 Days COOK GEMA DAVIES MD [Primary Care Provider] - 7 Days Prescriptions: AtorvaSTATin [Lipitor] 80 mg PO QHS #30 tab Aspirin [Aspirin TAB] 325 mg PO DAILY #30 tablet Clopidogrel [Plavix] 75 mg PO QDAY #30 tablet Lisinopril [Zestril TAB] 2.5 mg PO QDAY #30 tablet Metoprolol [Lopressor TAB] 12.5 mg PO BID #60 tablet Nitroglycerin [Nitrostat] 0.4 mg SL .Q5MIN PRN #15 tablet PRN Reason: Chest Pain
[2018-09-05 08:38] VITALS: BP 103/55
== END 2018-09-04 16:10 | disposition home or self-care (01) | DRG 246 ==
LOC: ED 21:56 → IMCU 09-01 01:24 → 4A 09-03 19:06
PROVIDERS: ADMIT Internal Medicine; ATTEND Internal Medicine
PROC: 027034Z Dilation of Coronary Artery, One Artery with Drug-eluting Intraluminal Device, Percutaneous Approach (ICD-10-PCS; principal; 2018-09-02)
PROC: 4A023N7 Measurement of Cardiac Sampling and Pressure, Left Heart, Percutaneous Approach (ICD-10-PCS; 2018-09-02)
PROC: B2111ZZ Fluoroscopy of Multiple Coronary Arteries using Low Osmolar Contrast (ICD-10-PCS; 2018-09-02)
PROC: B2151ZZ Fluoroscopy of Left Heart using Low Osmolar Contrast (ICD-10-PCS; 2018-09-02)
DX: I21.4 Non-ST elevation (NSTEMI) myocardial infarction (principal); I50.41 Acute combined systolic (congestive) and diastolic (congestive) heart failure; I16.9 Hypertensive crisis, unspecified; I11.0 Hypertensive heart disease with heart failure; E78.5 Hyperlipidemia, unspecified; R73.9 Hyperglycemia, unspecified; I16.0 Hypertensive urgency; I95.9 Hypotension, unspecified; R00.1 Bradycardia, unspecified; I25.82 Chronic total occlusion of coronary artery
CPT/HCPCS: 36415; 71045; 71046; 80048; 80061; 82550; 82553; 82962; 83036; 83735; 84484; 85014; 85018; 85025; 85027; 85049; 85347; 85520; 85610; 85730; 92928; 93005; 93010; 93306; 93458; 96365; G0378; A9270-GY; C1725; C1760; C1769; C1874; C1887; C1894; C9600; J1644; J1815; J2250; J3010; J3246; J7030; J7040; Q0162; Q9967

== ENCOUNTER 2018-11-16 15:48 | Inpatient (IN) | payer SELFPAY ==
[2018-11-16] MEDS ORDERED: ASPIRIN PO ONE (16:47)
[2018-11-16 17:30] LABS: Basophils # (Auto) 0.1 K/mm3 (0.0-0.1); Basophils % (Auto) 1.3 % (0.0-1.8); Eosinophils # (Auto) 0.1 K/mm3 (0.0-0.4); Eosinophils % (Auto) 2.3 % (0.0-4.3); Hematocrit 44.5 % (35.5-45.6); Hemoglobin 14.9 gm/dl (11.8-15.2); Lymphocytes # (Auto) 1.8 K/mm3 (1.2-5.4); Lymphocytes % (Auto) 33.7 % (13.4-35.0); Mean Corpuscular HGB Conc 33 % (32-34); Mean Corpuscular Volume 80 fl (84-94); Monocytes # (Auto) 0.4 K/mm3 (0.0-0.8); Platelet Count 179 K/mm3 (140-440); Red Blood Count 5.54 M/mm3 (3.65-5.03)
[2018-11-16 17:43] LABS: BUN/Creatinine Ratio 10; Blood Urea Nitrogen 11 mg/dL (9-20); Hemolysis Index 6
--- NOTE | 2018-11-16 18:00 | XRay Report ---
PROCEDURE: XR CHEST 1V AP TECHNIQUE: Frontal chest x-ray HISTORY: Chest Pain COMPARISONS: None FINDINGS: Normal heart size. Lungs are clear and well-expanded without focal infiltrate or consolidation. Imaged axial skeleton is unremarkable. No pneumothorax. Hilar contours are unremarkable. Probable coronary artery stent present. IMPRESSION: No acute cardiopulmonary disease. There appears to be a coronary artery stent present.. This document is electronically signed by Yennifer Bateman MD., Nov 16 2018 05:58:24 PM ET
[2018-11-16] MEDS ORDERED: HEPARIN 10,000 UNITS/10 ML IV ONE (21:42)
[2018-11-16] MEDS ORDERED: ASPIRIN ONE (21:58)
[2018-11-16] MEDS ORDERED: HEPARIN/ 0.45% NACL-25,000 UNIT/500 ML 25,000 UNIT/500 ML BAG IV SCH (22:00)
[2018-11-16 22:03] LABS: INR 0.88 (0.87-1.13)
[2018-11-16 22:04] LABS: Partial Thromboplastin Time 31.7 Sec. (24.2-36.6)
--- NOTE | 2018-11-16 22:14 | Emergency Department Report ---
ED Chest Pain HPI - General Chief Complaint: Chest Pain Stated Complaint: CHEST PAIN Time Seen by Provider: 11/16/18 15:59 Source: patient, old records reviewed Mode of arrival: Ambulatory Limitations: No Limitations - History of Present Illness Initial Comments: 63-year-old male with a past medical history hypertension and [place] this past August with LAD stent placement presents to the hospital complaints of constant anterior chest pain 1 day. Mild shortness of breath reported with nausea, vomiting, or diaphoresis. Patient was discharged here September 04 with medications. He attempted to follow up prior to the expiration of his medication since he did not have any refills. He states they were provided the wrong address and missed his appointment. It was re-scheduled for another week. He went to see Dr. Barton with [facility] with complaints of chest pain. At this point patient has not had his meds in 2 weeks with the exception of aspirin. He denies a history of diabetes or insulin use despite insulin prescription provided at discharge. Pt was sent to the ER for admission for unstable angina with recommendation of initiation of heparin drip and DAVPT. Severity scale (0 -10): 4 - Related Data Previous Rx's Medication Instructions Recorded Last Taken Type Acetaminophen [Acetaminophen TAB] 650 mg PO Q4H PRN #15 tablet 09/04/18 Unknown Rx Aspirin [Aspirin TAB] 325 mg PO DAILY #30 tablet 09/04/18 Unknown Rx AtorvaSTATin [Lipitor] 80 mg PO QHS #30 tab 09/04/18 Unknown Rx Clopidogrel [Plavix] 75 mg PO QDAY #30 tablet 09/04/18 Unknown Rx Insulin Glargine [Lantus VIAL] 10 units SUB-Q QHS units 09/04/18 Unknown Rx Lisinopril [Zestril TAB] 2.5 mg PO QDAY #30 tablet 09/04/18 Unknown Rx Metoprolol [Lopressor TAB] 12.5 mg PO BID #60 tablet 09/04/18 Unknown Rx Nitroglycerin [Nitrostat] 0.4 mg SL .Q5MIN PRN #15 tablet 09/04/18 Unknown Rx Allergies Allergy/AdvReac Type Severity Reaction Status Date / Time No Known Allergies Allergy Verified 08/31/18 22:06 Heart Score - HEART Score History: Moderately suspicious EKG: Non-specific Age: 45-65 Risk factors: 1-2 risk factors Troponin: < normal limit HEART Score: 4 ED Review of Systems ROS: Stated complaint: CHEST PAIN Other details as noted in HPI Comment: All other systems reviewed and negative ED Past Medical Hx - Past Medical History Hx Heart Attack/AMI: Yes - Surgical History Past Surgical History?: Yes - Social History Smoking Status: Current Some Day Smoker Substance Use Type: None - Medications Home Medications: Home Medications Medication Instructions Recorded Confirmed Last Taken Type Acetaminophen [Acetaminophen TAB] 650 mg PO Q4H PRN #15 tablet 09/04/18 11/16/18 Unknown Rx Aspirin [Aspirin TAB] 325 mg PO DAILY #30 tablet 09/04/18 11/16/18 Unknown Rx AtorvaSTATin [Lipitor] 80 mg PO QHS #30 tab 09/04/18 11/16/18 Unknown Rx Clopidogrel [Plavix] 75 mg PO QDAY #30 tablet 09/04/18 11/16/18 Unknown Rx Insulin Glargine [Lantus VIAL] 10 units SUB-Q QHS units 09/04/18 11/16/18 Unknown Rx Lisinopril [Zestril TAB] 2.5 mg PO QDAY #30 tablet 09/04/18 11/16/18 Unknown Rx Metoprolol [Lopressor TAB] 12.5 mg PO BID #60 tablet 09/04/18 11/16/18 Unknown Rx Nitroglycerin [Nitrostat] 0.4 mg SL .Q5MIN PRN #15 tablet 09/04/18 11/16/18 Unknown Rx ED Physical Exam - General Limitations: No Limitations - Other Other exam information: General: No limitations, patient is alert in no acute distress Head exam: Atraumatic, normocephalic Eyes exam: Normal appearance ENT: Moist mucous membrane Neck exam: Normal inspection, full range of motion, no meningismus nontender Respiratory exam: Clear to auscultation bilateral, no wheezes, rales, crackles Cardiovascular: Normal rate and rhythm, normal heart sounds, S1 nontender Abdomen: Soft, nondistended, and nontender, with normal bowel sounds, no rebound, or guarding Extremity: Full range of motion normal inspection no deformity, no calf tenderness or edema Back: Normal Inspection, full range of motion, no tenderness Neurologic: Alert, oriented x3, cranial nerves intact, no motor or sensory deficit Psychiatric: normal affect, normal mood Skin: Warm, dry, intact ED Course Vital Signs 05/11/16/18 11/16/18 16:45 21:38 22:01 Temperature 98.5 F 97.9 F Pulse Rate 63 50 L 52 L Respiratory 16 12 17 Rate Blood Pressure 135/71 135/71 Blood Pressure 153/76 135/71 [Right] O2 Sat by Pulse 98 98 98 Oximetry 11/16/18 11/16/18 22:50 23:00 Temperature Pulse Rate 48 L 50 L Respiratory 16 Rate Blood Pressure 126/71 119/73 Blood Pressure [Right] O2 Sat by Pulse 98 Oximetry BETI score - Beti Score Age > 65: (0) No Aspirin use within the Past 7 Days: (1) Yes 3 or more CAD Risk Factors: (1) Yes 2 or more Angina events in past 24 hrs: (1) Yes Known CAD with more than 50% Stenosis: (0) No Elevated Cardiac Markers: (0) No ST Deviation Greater than 0.5mm: (0) No BETI Score: 3 ED Medical Decision Making - Lab Data Result diagrams: 11/16/18 17:19 11/16/18 17:19 Lab Results 11/16/18 11/16/18 11/16/18 Range/Units 17:19 17:19 19:32 WBC 5.4 (4.5-11.0) K/mm3 RBC 5.54 H (3.65-5.03) M/mm3 Hgb 14.9 (11.8-15.2) gm/dl Hct 44.5 (35.5-45.6) % MCV 80 L (84-94) fl MCH 27 L (28-32) pg MCHC 33 (32-34) % RDW 14.0 (13.2-15.2) % Plt Count 179 (140-440) K/mm3 Lymph % (Auto) 33.7 (13.4-35.0) % [place] % (Auto) 7.0 (0.0-7.3) % Eos % (Auto) 2.3 (0.0-4.3) % Baso % (Auto) 1.3 (0.0-1.8) % Lymph # 1.8 (1.2-5.4) K/mm3 [place] # 0.4 (0.0-0.8) K/mm3 Eos # 0.1 (0.0-0.4) K/mm3 Baso # 0.1 (0.0-0.1) K/mm3 Seg Neutrophils % 55.7 (40.0-70.0) % Seg Neutrophils # 3.0 (1.8-7.7) K/mm3 PT (12.2-14.9) Sec. INR (0.87-1.13) APTT (24.2-36.6) Sec. Sodium 142 (137-145) mmol/L Potassium 4.6 (3.6-5.0) mmol/L Chloride 104.4 (98-107) mmol/L Carbon Dioxide 27 (22-30) mmol/L Anion Gap 15 mmol/L BUN 11 (9-20) mg/dL Creatinine 1.1 (0.8-1.5) mg/dL Estimated GFR > 60 ml/min BUN/Creatinine Ratio 10 % Glucose 154 H (75-100) mg/dL Calcium 9.0 (8.4-10.2) mg/dL Troponin T < 0.010 < 0.010 (0.00-0.029) ng/mL 11/16/18 Range/Units 21:44 WBC (4.5-11.0) K/mm3 RBC (3.65-5.03) M/mm3 Hgb (11.8-15.2) gm/dl Hct (35.5-45.6) % MCV (84-94) fl MCH (28-32) pg MCHC (32-34) % RDW (13.2-15.2) % Plt Count (140-440) K/mm3 Lymph % (Auto) (13.4-35.0) % [place] % (Auto) (0.0-7.3) % Eos % (Auto) (0.0-4.3) % Baso % (Auto) (0.0-1.8) % Lymph # (1.2-5.4) K/mm3 [place] # (0.0-0.8) K/mm3 Eos # (0.0-0.4) K/mm3 Baso # (0.0-0.1) K/mm3 Seg Neutrophils % (40.0-70.0) % Seg Neutrophils # (1.8-7.7) K/mm3 PT 12.5 (12.2-14.9) Sec. INR 0.88 (0.87-1.13) APTT 31.7 (24.2-36.6) Sec. Sodium (137-145) mmol/L Potassium (3.6-5.0) mmol/L Chloride (98-107) mmol/L Carbon Dioxide (22-30) mmol/L Anion Gap mmol/L BUN (9-20) mg/dL Creatinine (0.8-1.5) mg/dL Estimated GFR ml/min BUN/Creatinine Ratio % Glucose (75-100) mg/dL Calcium (8.4-10.2) mg/dL Troponin T (0.00-0.029) ng/mL - EKG Data -: EKG Interpreted by Nm EKG shows normal: sinus rhythm, axis (qrsd 62), QRS complexes (qrsd 92), ST-T waves (biphasic t v1/vs) Rate: normal (65) - EKG Data When compared to previous EKG there are: changes noted - Radiology Data Radiology results: report reviewed cxr: naf, + stent - Medical Decision Making Plan to admitted to the hospital for workup of unstable angina as recommended by stamp machine servicer Aspirin, nitro paste, heparin initiated in ED Initial troponins negative times X 2 - Differential Diagnosis [place], unstable angina, PE, atypical chest Critical Care Time: Yes Critical care time in (mins) excluding proc time.: 35 Critical care attestation.: If time is entered above; I have spent that time in minutes in the direct care of this critically ill patient, excluding procedure time. ED Disposition Clinical Impression: Chest pain, Hx of heart artery stent, Hx of non-ST elevation myocardial infarction (NSTEMI), Noncompliance with medication regimen, Hypertension Disposition: OP ADMIT IP TO THIS HOSP Is pt being admited?: Yes Does the pt Need Aspirin: Yes Condition: Stable Time of Disposition: 22:14
[2018-11-16] MEDS ORDERED: NITRO-BID 2% TP ONE (22:15)
[2018-11-16] MEDS ORDERED: MORPHINE IV PRN (23:37)
[2018-11-16] MEDS ORDERED: ZOFRAN IV PRN (23:38)
[2018-11-16] MEDS ORDERED: TYLENOL PO PRN (23:38)
[2018-11-16] MEDS ORDERED: NITROSTAT SL PRN (23:40)
[2018-11-17 01:05] LABS: Creatine Kinase MB 3.5 ng/mL (0.0-4.0)
[2018-11-17] MEDS ORDERED: NITROSTAT SL ONE (06:29)
[2018-11-17] MEDS ORDERED: NITRO-BID 2% TP ONE ×2 (06:30→10:06)
[2018-11-17 06:37] LABS: Creatine Kinase MB 3.2 ng/mL (0.0-4.0)
[2018-11-17] MEDS: NITRO-BID 2% TP SCH ×2 (06:45→10:17)
--- NOTE | 2018-11-17 08:42 | History and Physical Report ---
CHIEF COMPLAINT: Chest pain. HISTORY OF PRESENT ILLNESS: The patient is a 63-year-old male, who had myocardial infarction in August with LAD stent placed in 08/2018, and was placed on some medication and the patient started having chest pain yesterday 11/16/2018, with some shortness of breath, nausea, and vomiting and also diaphoretic. The patient will discharged from the hospital on 09/04/2018, with some medications and he made attempt to follow with his decontamination technician prior to his medications running out but was unable to do so, and the patient did not have refill of his medications and said he could not find the right address of the [facility] where the appointment was made and the patient eventually had appointment rescheduled. However, the patient saw Dr. Barton with [facility], had to do with complaint of chest pain and has not been on his medication for 2 weeks with exception of aspirin. The patient denied a history of diabetes or insulin use despite being discharged on insulin, and presented to the Emergency Room, where he was seen in the Emergency Room and started on heparin. PAST MEDICAL HISTORY: Pertinent for coronary artery disease. Also, the patient has a past medical history of hypertension. PAST SURGICAL HISTORY: Pertinent for recent stent placement. FAMILY HISTORY: Noncontributory. SOCIAL HISTORY: The patient smokes cigarettes. He does not drink alcohol, and does not use illicit drugs. MEDICATIONS: The patient is on Tylenol 650 mg by mouth every 4 hours for fever and headache, aspirin 325 mg by mouth daily, Lipitor 80 mg by mouth daily, Plavix 75 mg by mouth daily, Lantus insulin 10 units subcutaneously at bedtime, lisinopril 2.5 mg by mouth daily, Lopressor 12.5 mg by mouth twice daily, Nitrostat or nitroglycerin sublingual 0.4 mg every 5 minutes as needed for pain. ALLERGIES: There are no known drug allergies. REVIEW OF SYSTEMS: CONSTITUTIONAL: There is no fever, no chills, no diaphoresis. HEENT: There is no headache or sore throat. CARDIOVASCULAR SYSTEM: Chest pain is present. No orthopnea. RESPIRATORY SYSTEM: Shortness of breath present. There is no cough. GASTROINTESTINAL SYSTEM: The patient has nausea and vomiting, but no diarrhea. The patient has no abdominal pain. NEUROLOGICAL SYSTEM: There is no numbness, no dizziness, no altered mental status. MUSCULOSKELETAL SYSTEM: There is no joint pain or swelling. DERMATOLOGICAL SYSTEM: There is no skin rash or itching. GENITOURINARY SYSTEM: There is no dysuria, hematuria, or flank pain. Rest of system review is normal. PHYSICAL EXAMINATION: GENERAL: At the time of exam, the patient was found to be alert, oriented x 3 and not in acute distress. VITAL SIGNS: At the initial time of presentation showed temperature of 98.5 degrees Fahrenheit, pulse of 63, respirations 16, blood pressure 153/76, and O2 sat of 98% on room air. HEENT: Show pupils to be equal, round, and reactive to light and accommodating. Extraocular muscles are intact. NECK: Supple with no JVD or carotid bruit. CARDIOVASCULAR SYSTEM: Showed normal first and second heart sounds with no gallops or murmurs. RESPIRATORY SYSTEM: Showed good air entry on both sides of the lung with no abnormal breath sounds. GASTROINTESTINAL SYSTEM: Showed abdomen to be full, soft, nontender with no organomegaly or rigidity. NEUROLOGIC: Showed no focal deficit. MUSCULOSKELETAL SYSTEM: Showed no joint swelling or tenderness. DERMATOLOGICAL SYSTEM: Showed no skin rash. GENITOURINARY SYSTEM: Showing no costovertebral angle tenderness. PERTINENT LABORATORY AND IMAGING STUDIES: The patient had chest x-ray done that shows no acute coronary artery disease and radiologist said there appears to be a coronary artery stent present. The patient's lab results show CBC with normal white count, normal hemoglobin and normal hematocrit with unremarkable CBC differential. The patient's coagulation studies were unremarkable. The patient's chemistry was unremarkable. Troponin level came back normal. DIAGNOSIS: Chest pain. PLAN OF CARE: 1. The patient will be admitted to medical floor. 2. The patient will have serial cardiac enzymes checked q.6 hours x 2 levels. 3. The patient will continue IV heparin started in the Emergency Room on the request of the decontamination technician. 4. The patient will need Cardiology consult with Dr. Shoshana Barton. 5. The patient will be on Tylenol 650 mg by mouth every 4 hours for fever and headache and will be on daily aspirin 325 mg by mouth. Also the patient will be on IV morphine 2 mg every 3 hours as needed for pain and will be on Nitrostat 0.4 mg every 5 minutes as needed for breakthrough chest pain. 6. The patient will be on IV Zofran 4 mg every 8 hours as needed for nausea and vomiting. 7. The patient will be on oxygen by nasal cannula 2 liters per minute. 8. The patient's management will be dependent on cardiology consult. JOB# [id number] OCN/NTS
[2018-11-17] MEDS ORDERED: ASPIRIN ONE (10:05)
[2018-11-17] MEDS: ASPIRIN PO SCH (10:17)
[2018-11-17] MEDS ORDERED: LEXISCAN IV ONE ×2 (11:14→11:17)
--- NOTE | 2018-11-17 12:37 | Event Note ---
Date: 11/17/18 Prior to anticipated stress test, we reviewed the patient's ECG which does not show some progression of T-wave changes from biphasic in V1 on presentation, to currently inverted from V1 through V4. We will cancel stress test instead recommend cardiac catheterization and coronary angiography.
[2018-11-17] MEDS ORDERED: HEPARIN/NS 5000 UNIT/500ML(CATH LAB) 1,000 ML IR ONE (12:41)
[2018-11-17] MEDS ORDERED: NACL 0.9% 500 ML 500 ML ONE (12:41)
[2018-11-17] MEDS ORDERED: HEPARIN 10,000 UNITS/10 ML ONE (12:41)
[2018-11-17] MEDS: VERSED ONE ×2 (13:04→13:07)
[2018-11-17] MEDS: SUBLIMAZE ONE ×2 (13:04→13:07)
[2018-11-17] MEDS: XYLOCAINE 2% INFILTRATI ONE ×2 (13:04→13:09)
[2018-11-17] MEDS ORDERED: ALUM-MAG HYDROX-SIMETH 200-200-20MG/5ML ONE (13:29)
[2018-11-17] MEDS ORDERED: PLAVIX ONE (13:29)
--- NOTE | 2018-11-17 13:49 | Event Note ---
Date: 11/17/18 Cardiac catheterization shows the mid LAD stent to be patent, we'll will continue medical therapy. Patient will be resumed on uninterrupted dual antiplatelet therapy.
[2018-11-17] MEDS ORDERED: NACL 0.9% 1000 ML 1,000 ML IV SCH (14:00)
--- NOTE | 2018-11-17 15:50 | Progress Note ---
Assessment and Plan Chest pain, likely atypical - Cardiac cath this morning showed patent stent - Cardiology recommended to monitor overnight and with possible discharge in the morning - Continue aspirin and Plavix and statin Coronary artery disease with recent stent placement - Cardiac cath done on 09/02/18 with Successful angioplasty and stenting 100% t hrombotic occlusion of the mid LAD - Continue medical management for now, cardiology following Hypertension, continue current meds Hyperlipidemia, continue statin Brief History: 63-year-old male with a past medical history hypertension and [place] this past August with LAD stent placement presented to the hospital complaints of constant anterior chest pain 1 day. He went to see Dr. Barton with [facility] for the chest pain, he stated that he has not had his meds in 2 weeks with the exception of aspirin. Pt was sent to the ER for admission for unstable angina with recommendation of initiation of heparin drip and DAVPT. Radiological data: Chest x-ray, no infiltrates Hospitalist Physical exam: GENERAL: well-developed and well-nourished lying on bed appeared to be in no discomfort. HEENT: Normocephalic. Atraumatic. No conjunctival congestion or icterus. Patient has moist mucous membranes. NECK: Supple. Trachea midline. CHEST/LUNGS: Clear to auscultated bilaterally, breathing nonlabored. No wheezes crackles or rhonchi. HEART/CARDIOVASCULAR: Regular in rate and rhythm. S1 and S2 positive. ABDOMEN: Abdomen is soft, nontender. Patient has normal bowel sounds. SKIN: There is no rash. Warm and dry. NEURO: No focal motor deficit. Follows command. MUSCULOSKELETAL: No joint effusion or tenderness. EXTRIMITY: No edema, no cyanosis or clubbing. PSYCH: Cooperative. Subjective Date of service: 11/17/18 Interval history: Patient seen and examined. Medical records and medication list reviewed. No acute event overnight noted by the RN. Patient denies any chest pain or difficulty breathing. Patient is tolerating diet. Discussed plan of care at bedside with patient. Objective - Constitutional Vitals: Vital Signs - 12hr 11/17/18 11/17/18 11/17/18 04:01 05:01 06:00 Temperature Pulse Rate 52 L 49 L 48 L Respiratory 19 17 14 Rate Blood Pressure 94/41 116/59 107/60 Blood Pressure [Right] O2 Sat by Pulse 96 98 98 Oximetry 11/17/18 11/17/18 11/17/18 06:45 08:00 12:00 Temperature 97.9 F Pulse Rate 52 L 52 L 52 L Respiratory 14 14 Rate Blood Pressure 104/61 105/60 Blood Pressure 135/71 [Right] O2 Sat by Pulse 96 96 Oximetry 11/17/18 14:49 Temperature Pulse Rate Respiratory Rate Blood Pressure Blood Pressure [Right] O2 Sat by Pulse 94 Oximetry - Labs CBC & Chem 7: 11/18/18 04:11 11/16/18 17:19 Labs: Abnormal lab results 11/16/18 11/16/18 Range/Units 17:19 17:19 RBC 5.54 H (3.65-5.03) M/mm3 MCV 80 L (84-94) fl MCH 27 L (28-32) pg Glucose 154 H (75-100) mg/dL
[2018-11-17] MEDS ORDERED: IMDUR PO SCH (16:00)
--- NOTE | 2018-11-17 16:03 | Cardiac Catherization Report ---
CARDIAC CATHETERIZATION REASON FOR PROCEDURE: The patient is a 63-year-old man with coronary artery disease. Two months ago, he underwent angioplasty and stenting of the mid LAD for an acute mid LAD occlusion. It is reported that he presented to his doctor's office yesterday, complained of chest pain, and admitted to noncompliance with his antiplatelet therapy for over 2 weeks. He was admitted to the hospital and further cardiac evaluation was recommended. Serial ECGs were reviewed. The patient had biphasic T waves to nonspecific T-wave inversions in the anterolateral leads, prompting a recommendation for coronary angiography. DESCRIPTION OF PROCEDURE: The patient was prepped and draped in a sterile fashion after informed consent. Right femoral artery was entered using Seldinger technique followed by placement of a 6-Hungarian sheath. Selective left and right coronary angiography was performed using #4 right and left Rip catheters. The pigtail catheter was used for left ventricle angiography. The catheters were removed, sheath removed, and hemostasis achieved using an Angio-Seal device. The patient was returned to the postprocedure unit in stable condition. There were no complications. FINDINGS: HEMODYNAMICS: Left ventricle end diastolic pressure was 13, following coronary angiography. Ascending aortic pressure was 99/44. There was no significant pressure gradient on pullback across the aortic valve. CORONARY ANGIOGRAPHY: The left main coronary artery was free of significant disease. A stent was visible in the mid LAD. The stented segment was widely patent with a short segment of mild in-stent restenosis. Otherwise, mild disease was noted of the proximal LAD outside the stented segment. A diagonal branch, which originated from the proximal stent border showed mild ostial narrowing, but was otherwise patent. The circumflex artery and its obtuse marginal branches were free of significant disease. The right coronary artery was dominant, and contained mild luminal irregularities. There was well preserved left ventricular systolic function with ejection fraction of 55-60%. Only mild hypokinesis of the anterior wall was noted. CONCLUSION: 1. Widely patent mid LAD stent, with a very mild in-stent restenosis of the mid stent. 2. Otherwise, no significant residual obstructive disease. 3. Well preserved left ventricular systolic function, ejection fraction 55-60%. RECOMMENDATION: 1. Risk factor modification. 2. Medical therapy including compliance with dual oral antiplatelet therapy. [facility]# [id number] CA/NTS
[2018-11-17] MEDS: LOPRESSOR PO SCH (21:48)
[2018-11-18 05:30] LABS: Hematocrit 40.7 % (35.5-45.6); Hemoglobin 13.8 gm/dl (11.8-15.2)
[2018-11-18] MEDS: LOPRESSOR PO SCH (09:57)
[2018-11-18] MEDS: ASPIRIN PO SCH (09:57)
[2018-11-18] MEDS ORDERED: ZESTRIL PO SCH (10:00)
[2018-11-18] MEDS ORDERED: PLAVIX PO SCH (10:00)
--- NOTE | 2018-11-18 10:00 | Progress Note ---
Assessment and Plan Chest pain patent mid LAD stent by cath Coronary artery disease Non-compliance Sinus bradycardia - asymptomatic Hyperlipidemia Recommendations: Continue current medical management All medications have been submitted to pharmacy through office EMR Outpatient follow-up with [facility] within 4 weeks Cardiology will sign off Subjective Date of service: 11/18/18 Principal diagnosis: Chest pain Interval history: Patient denies chest pain or shortness of breath Right groin is intact, no bruits Objective Vital Signs Temp Pulse Resp BP BP Pulse Ox 11/18/18 08:00 97.9 F 49 L 18 121/63 95 11/18/18 04:09 97.5 F L 48 L 16 113/56 95 11/17/18 23:52 97.3 F L 49 L 17 114/58 94 11/17/18 20:06 97.5 F L 50 L 18 111/63 95 11/17/18 16:15 98.4 F 48 L 16 95/51 98 11/17/18 15:15 97.7 F 53 L 16 100/68 97 11/17/18 14:49 94 11/17/18 14:45 97.9 F 51 L 14 100/51 96 11/17/18 14:15 97.9 F 50 L 16 98/60 98 11/17/18 14:00 97.4 F L 48 L 16 95/53 98 11/17/18 13:25 111/57 97 11/17/18 12:00 97.9 F 52 L 14 135/71 96 11/17/18 10:21 61 21 111/57 11/17/18 10:11 67 17 111/57 11/17/18 10:00 61 18 111/57 - Physical Examination General: Appears Well Neck: Positive: neck supple Cardiac: Positive: Reg Rate and Rhythm Lungs: Positive: clear to auscultation Neuro: Positive: Grossly Intact Abdomen: Positive: Soft Extremities: Absent: edema - Labs and Meds CBC 11/18/18 Range/Units 04:11 Hgb 13.8 (11.8-15.2) gm/dl Hct 40.7 (35.5-45.6) % Plt Count 148 (140-440) K/mm3
--- NOTE | 2018-11-18 10:02 | Progress Note ---
Assessment and Plan Chest pain [facility] this admission demonstrates a widely patent mid LAD stent, EF 55-60%. Hx of CAD s/p PCI of the mid LAD 08/2018 Noncompliant with medications Recommendations: Patient advised compliance with medications to include Plavix 75 mg, aspirin, beta blockers, low-dose lisinopril, high-dose statin. Stable, cardiac katz, for discharge home today. Follow up with [facility] as scheduled December 18. Subjective Date of service: 11/18/18 Interval history: Patient is resting in bed and appears comfortable. He denies chest pain and shortness of breath. Objective Vital Signs Temp Pulse Resp BP BP Pulse Ox 11/18/18 08:00 97.9 F 49 L 18 121/63 95 11/18/18 04:09 97.5 F L 48 L 16 113/56 95 11/17/18 23:52 97.3 F L 49 L 17 114/58 94 11/17/18 20:06 97.5 F L 50 L 18 111/63 95 11/17/18 16:15 98.4 F 48 L 16 95/51 98 11/17/18 15:15 97.7 F 53 L 16 100/68 97 11/17/18 14:49 94 11/17/18 14:45 97.9 F 51 L 14 100/51 96 11/17/18 14:15 97.9 F 50 L 16 98/60 98 11/17/18 14:00 97.4 F L 48 L 16 95/53 98 11/17/18 13:25 111/57 97 11/17/18 12:00 97.9 F 52 L 14 135/71 96 11/17/18 10:21 61 21 111/57 11/17/18 10:11 67 17 111/57 11/17/18 10:00 61 18 111/57 - Physical Examination General: No Apparent Distress HEENT: Positive: PERRL Neck: Positive: trachea midline Cardiac: Positive: Reg Rate and Rhythm Lungs: Positive: Decreased Breath Sounds Neuro: Positive: Grossly Intact Incision: Cardiac Cath Site (right groin) - Labs and Meds CBC 11/18/18 Range/Units 04:11 Hgb 13.8 (11.8-15.2) gm/dl Hct 40.7 (35.5-45.6) % Plt Count 148 (140-440) K/mm3
--- NOTE | 2018-11-18 11:40 | Discharge Summary ---
Providers - Providers Date of Admission: 11/16/18 23:34 Date of discharge: 11/18/18 Attending physician: ZEKE CHAPIN 11/17/18 13:49 Consult to Cardiac Rehabilitation [CONS] Routine Reason For Exam: Cardiac Rehab Evaluation [facility] Hospitalization Condition: Stable Procedures: cardiac cath Hospital course: Brief History: 63-year-old male with a past medical history hypertension and [place] this past August with LAD stent placement presented to the hospital complaints of constant anterior chest pain 1 day. He went to see Dr. Barton with [facility] for the chest pain, he stated that he has not had his meds in 2 weeks with the exception of aspirin. Pt was sent to the ER for admission for unstable angina with recommendation of initiation of heparin drip and DAVPT. Patient was further evaluated with a left heart cardiac catheterization during this admission when she showed patent meet LAD stent with preserved EF. Patient was advised to be compliant with her medications. She also placed on PPI for possible GERD. She was discharged home in stable condition with further outpatient cardiology follow-up. Radiological data: Chest x-ray, no infiltrates Discharge diagnosis and management Chest pain, likely atypical, possible GERD - Cardiac cath this morning showed patent mid LAD stent, EF 55-60% - Cardiology recommended to monitor overnight following cardiac and to remain compliance with medications to include Plavix 75 mg, aspirin, beta blockers, low-dose lisinopril, high-dose statin. - Patient will Follow up with [facility] as scheduled December 18. - placed on PPI for possible GERD Coronary artery disease with recent stent placement - Cardiac cath done on 09/02/18 with Successful angioplasty and stenting 100% thrombotic occlusion of the mid LAD - Continue medical management for now, cardiology following Hypertension, continue current meds Hyperlipidemia, continue statin DVT prophylaxis, heparin/ scd Hospitalist Physical exam: GENERAL: well-developed and well-nourished male lying on bed appeared to be in no discomfort. HEENT: Normocephalic. Atraumatic. No conjunctival congestion or icterus. Patient has moist mucous membranes. NECK: Supple. Trachea midline. CHEST/LUNGS: Clear to auscultated bilaterally, breathing nonlabored. No wheezes crackles or rhonchi. HEART/CARDIOVASCULAR: Regular in rate and rhythm. S1 and S2 positive. ABDOMEN: Abdomen is soft, nontender. Patient has normal bowel sounds. SKIN: There is no rash. Warm and dry. NEURO: No focal motor deficit. Follows command. MUSCULOSKELETAL: No joint effusion or tenderness. EXTRIMITY: No edema, no cyanosis or clubbing. PSYCH: Cooperative. Disposition: THAI-Prem TO HOME OR SELFCARE Time spent for discharge: 34 minutes Core Measure Documentation - Palliative Care Palliative Care/ Comfort Measures: Not Applicable - Core Measures Any of the following diagnoses?: history only Exam - Constitutional Vitals: Temp Pulse Resp BP Pulse Ox 97.9 F 49 L 18 121/63 95 11/18/18 08:00 11/18/18 08:00 11/18/18 08:00 11/18/18 08:00 11/18/18 08:00 Plan Activity: advance as tolerated Weight Bearing Status: Non-Weight Bearing Diet: low fat, low salt Follow up with: ELIJAH SHARP MD [Staff Physician] - 7 Days SELAH GEMA DAVIES MD [Primary Care Provider] - 3-5 Days Forms: CardCat PCI D/C Instructions Prescriptions: AtorvaSTATin [Lipitor] 80 mg PO QHS #30 tab ISOSORBIDE MONOnitrate [Imdur ER] 30 mg PO QDAY #30 tablet Metoprolol [Lopressor TAB] 25 mg PO BID #60 tablet Nitroglycerin [Nitrostat] 0.4 mg SL .Q5MIN PRN #15 tablet PRN Reason: Chest Pain Clopidogrel [Plavix] 75 mg PO QDAY #30 tablet Pantoprazole [Protonix] 40 mg PO QDAY #30 tablet Lisinopril [Zestril TAB] 2.5 mg PO QDAY #30 tablet
[2018-11-18 12:53] VITALS: BP 103/55
== END 2018-11-18 14:30 | disposition home or self-care (01) | DRG 392 ==
LOC: ED 15:48 → 4A 23:34
PROVIDERS: ADMIT Internal Medicine; ATTEND Internal Medicine
PROC: 4A023N7 Measurement of Cardiac Sampling and Pressure, Left Heart, Percutaneous Approach (ICD-10-PCS; principal; 2018-11-17)
PROC: B2100ZZ Fluoroscopy of Single Coronary Artery using High Osmolar Contrast (ICD-10-PCS; 2018-11-17)
PROC: B2151ZZ Fluoroscopy of Left Heart using Low Osmolar Contrast (ICD-10-PCS; 2018-11-17)
DX: K21.9 Gastro-esophageal reflux disease without esophagitis (principal); I10 Essential (primary) hypertension; I25.2 Old myocardial infarction; F17.200 Nicotine dependence, unspecified, uncomplicated; Z95.5 Presence of coronary angioplasty implant and graft; Z79.899 Other long term (current) drug therapy; Z79.82 Long term (current) use of aspirin; Z91.19 Patient's noncompliance with other medical treatment and regimen; R00.1 Bradycardia, unspecified; E78.5 Hyperlipidemia, unspecified
CPT/HCPCS: 36415; 71045; 80048; 82550; 82553; 84484; 85014; 85018; 85025; 85049; 85520; 85610; 85730; 93005; 93010; 93458; G0378; A9270-GY; C1760; C1894; J1644; J2250; J2785; J3010; J7030; J7040; Q9967